=== PATIENT | male | born 1960 | race Caucasian/White ===

== ENCOUNTER 2018-06-12 10:59 | Emergency (ER) | payer BC ==
[~2018-06-12] VITALS: Ht 167.6 cm; Wt 89.8 kg
[2018-06-12] MEDS ORDERED: LIPOFEN150 MG (11:18)
[2018-06-12] MEDS ORDERED: BUSPIRONE HCL15 MG (11:18)
[2018-06-12] MEDS ORDERED: TAMS0.4C (11:18)
[2018-06-12] MEDS ORDERED: TRAMADOL HCL E100 M1 (11:19)
== END 2018-06-12 15:52 | disposition home or self-care (01) ==
LOC: ER 10:59
DX: N20.1 Calculus of ureter (principal); R10.813 Right lower quadrant abdominal tenderness